=== PATIENT | male | born 1975 | race Caucasian/White ===

== ENCOUNTER → 2018-09-11 | Outpatient (REF) | payer BC | LOC: M SMT 13:39 | PROVIDERS: ATTEND Urology | DX: Z30.2 Encounter for sterilization (principal) ==

== ENCOUNTER → 2018-10-04 | Outpatient (REF) | payer BC ==
[2018-10-04 13:09] LABS: SEMEN APPEARANCE OPAQUE (OPAQUE); SEMEN VISCOSITY LIQUID (LIQUID); SEMEN VOLUME 1.5 ml (2.0-5.0); SEMEN pH 8.5 (7.0-8.0); WBC CONCENTRATION >1 M/ml (<=1 M/ml)
== END ==
LOC: M LAB REF 11:39
PROVIDERS: ATTEND Urology
DX: Z30.2 Encounter for sterilization (principal)

== ENCOUNTER → 2019-02-02 | Outpatient (REF) | payer BC ==
[2019-02-02 17:27] LABS: SEMEN APPEARANCE OPAQUE (OPAQUE); SEMEN VISCOSITY LIQUID (LIQUID); SEMEN VOLUME 1.7 ml (2.0-5.0); SEMEN pH 8.5 (7.0-8.0); WBC CONCENTRATION >1 M/ml (<=1 M/ml)
== END ==
LOC: M SMT 13:18
PROVIDERS: ATTEND Urology
DX: Z30.8 Encounter for other contraceptive management (principal)

== ENCOUNTER → 2021-08-29 | Outpatient (REF) | payer BC ==
[2021-08-29 13:30] LABS: C REACTIVE PROTEIN QUANTITATIV < 0.30 MG/DL (0.00-0.30); FERRITIN 166 NG/ML (26-388); IRON (FE) 106 UG/DL (65-175); LDH LACTATE DEHYDROGENASE 146 U/L (87-241); PERCENT SATURATION 33.3 % (19.7-50.0); TOTAL IRON BINDING CAPACITY 318 UG/DL (250-450)
[2021-08-29 14:02] LABS: HEPATITIS B SURFACE ANTIBODY NEGATIVE (POSITIVE); VITAMIN B12 LEVEL 292 PG/ML
[2021-08-29 14:13] LABS: HEPATITIS B SURFACE ANTIGEN NEGATIVE (NEGATIVE)
[2021-08-29 14:40] LABS: HEPATITIS B CORE ANTIBODY IGM NEGATIVE (NEGATIVE); HEPATITIS C VIRUS ABY INDEX 0.1 INDEX (<0.8)
[2021-08-30 13:09] LABS: ANTINUCLEAR ANTIBODIES DIRECT Negative (Negative)
== END ==
LOC: M LAB REF 12:27
PROVIDERS: ATTEND Internal Medicine
DX: R74.01 Elevation of levels of liver transaminase levels (principal); R63.4 Abnormal weight loss; R41.3 Other amnesia